=== PATIENT | male | born 1965 | race Caucasian/White ===

== ENCOUNTER 2017-06-26 17:58 | Outpatient (CLI) | payer OTHER ==
--- NOTE | 2017-06-26 18:39 | RAD ---
LEFT HAND THREE VIEWS: 06/26/17 HISTORY: Fall. Pain. COMPARISON: None. FINDINGS: There appears to be bandage material overlying the ring finger. No obvious fractures. Punctate densit ies may represent foreign bodies. Correlate clinically. Joint spaces are preserved. IMPRESSION: Bandage material and soft tissue swelling overlying the fourth digit. Possible foreign bodies. Correl ate clinically. POS: MISTY
== END 2017-06-26 17:59 | disposition home or self-care (01) ==
LOC: MADRAD 17:58
PROVIDERS: ATTEND Nurse Practitioner Family
DX: L03.012 Cellulitis of left finger (principal); W34.00XA Accidental discharge from unspecified firearms or gun, initial encounter; M79.89 Other specified soft tissue disorders

== ENCOUNTER 2023-09-07 14:14 | Emergency (ER) | payer OTHER ==
[2023-09-07] MEDS ORDERED: Morphine 4 MG/ML VIAL ONE (14:31)
[2023-09-07] MEDS ORDERED: Orphenadrine Citrate 60 MG/2 ML VIAL ONE (15:48)
== END 2023-09-07 15:54 | disposition home or self-care (01) ==
LOC: MADERS 14:14
DX: S30.0XXA Contusion of lower back and pelvis, initial encounter (principal); R91.8 Other nonspecific abnormal finding of lung field; I10 Essential (primary) hypertension; E78.5 Hyperlipidemia, unspecified; W22.8XXA Striking against or struck by other objects, initial encounter
CPT/HCPCS: 72128; 72131; 96372; J2270; J2360

== ENCOUNTER 2024-03-13 10:29 | Outpatient (CLI) | payer OTHER | END 2024-03-13 10:30 | disposition home or self-care (01) | LOC: MADLAB 10:29 | PROVIDERS: ATTEND Family Medicine | DX: J18.9 Pneumonia, unspecified organism (principal) | CPT/HCPCS: 71046 ==

== ENCOUNTER 2024-03-26 10:34 | Outpatient (CLI) | payer OTHER | END 2024-03-26 10:35 | disposition home or self-care (01) | LOC: MADRAD 10:34 | PROVIDERS: ATTEND Family Medicine | DX: Z87.01 Personal history of pneumonia (recurrent) (principal) | CPT/HCPCS: 71046 ==

== ENCOUNTER 2025-01-27 13:52 | Outpatient (CLI) | payer OTHER | END 2025-01-27 13:53 | disposition home or self-care (01) | LOC: MADRAD 13:52 | PROVIDERS: ATTEND Family Medicine | DX: M25.552 Pain in left hip (principal); M16.12 Unilateral primary osteoarthritis, left hip ==